=== PATIENT | male | born 1940 | race Caucasian/White ===

== ENCOUNTER 2025-06-23 10:01 | Outpatient (CLI) | payer MEDICARE | END 2025-06-23 10:02 | disposition home or self-care (01) | LOC: CSHULT 10:01 | PROVIDERS: ATTEND Student in an Organized Health Care Education/Training Program | DX: N50.89 Other specified disorders of the male genital organs (principal); N43.3 Hydrocele, unspecified; N50.3 Cyst of epididymis | CPT/HCPCS: 76870; 93976 ==